=== PATIENT | male | born 1985 | race Hispanic/Latino ===

== ENCOUNTER 2017-04-09 17:00 | Emergency (ER) | payer MEDICAID ==
[2017-04-09 17:35] VITALS: BMI 29.0
[2017-04-09 17:36] VITALS: BP 140/77; PULSE 100; RESP 16; TEMP 97.6; O2SAT 99
--- NOTE | 2017-04-09 18:16 | ED PDOC ---
HPI: Wound Care - HPI Time Seen by Provider: 04/09/17 18:10 Chief Complaint (Nursing): Abnormal Skin Integrity Chief Complaint (Provider): Abscess on neck History Per: Patient Exam Limitations: no limitations Onset/Duration Of Symptoms: Waxing/Waning Current Symptoms Are (Timing): Still Present Additional Complaint(s): Allan is a 31 y/o male who presents complaining of sebaceous cyst on the nape of his neck, ongoing for years but worsened today. States he has had the cyst drained previously. He has an appointment Wednesday with [employer] supervisor, but states it became very painful today so he came here to have it drained. PMD: Darrel Jimenez MD Past Medical History Reviewed: Historical Data, Nursing Documentation, Vital Signs Vital Signs: Last Vital Signs Temp 97.6 F 04/09/17 17:35 Pulse 100 H 04/09/17 17:35 Resp 16 04/09/17 17:35 BP 140/77 04/09/17 17:35 Pulse Ox 99 04/09/17 17:35 - Medical History PMH: No Chronic Diseases - Surgical History Surgical History: No Surg Hx - Family History Family History: States: Unknown Family Hx - Social History Current smoker - smoking cessation education provided: Yes Alcohol: Social Drugs: Denies - Home Medications Home Medications: Ambulatory Orders Medication Instructions Recorded Ibuprofen [Motrin Tab] 800 mg PO BID #20 tab 04/09/17 Sulfamethoxazole/Trimethoprim 1 tab PO BID #14 tab 04/09/17 [Bactrim DS 800 mg-160 mg] oxyCODONE/Acetaminophen [Percocet 1 tab PO Q6 PRN #15 tab 04/09/17 5/325 mg Tab] - Allergies Allergies/Adverse Reactions: Allergies Allergy/AdvReac Type Severity Reaction Status Date / Time No Known Allergies Allergy Verified 04/09/17 17:43 Review of Systems ROS Statement: Except As Marked, All Systems Reviewed And Found Negative Musculoskeletal: Positive for: Neck Pain (with cyst) Physical Exam - Reviewed Nursing Documentation Reviewed: Yes Vital Signs Reviewed: Yes - Physical Exam Appears: Positive for: Non-toxic, No Acute Distress Head Exam: Positive for: ATRAUMATIC, NORMAL INSPECTION, NORMOCEPHALIC Skin: Positive for: Warm. Negative for: Normal Color (large abscess, approximately 3 1/2 by 2 cm, at the nape of the neck with streaking. Very fluctuant, warm and tender. ) Eye Exam: Positive for: EOMI, Normal appearance, PERRL Neurologic/Psych: Positive for: Alert, Oriented - ECG O2 Sat by Pulse Oximetry: 99 (RA) Pulse Ox Interpretation: Normal Medical Decision Making Medical Decision Making: Clinical Impression: Epidermal inclusion cyst Time: 18:15 Initial Plan: --requires I&D, with normal saline irrigation with 250NS cc. >10cc of pus drainage. Pt given perocet, motrin bactim. warm compress Patient will be discharged home with Bactrim and instructed to follow up with [employer] supervisor. Scribe Attestation: Documented by Maribel Jade, acting as a scribe for Selena Jara PA-C Provider Scribe Attestation: All medical record entries made by the Scribe were at my direction and personally dictated by me. I have reviewed the chart and agree that the record accurately reflects my personal performance of the history, physical exam, medical decision making, and the department course for this patient. I have also personally directed, reviewed, and agree with the discharge instructions and disposition. Disposition - Clinical Impression Clinical Impression: Sebaceous cyst - Patient ED Disposition Is Patient to be Admitted: No Counseled Patient/Family Regarding: Diagnosis, Need For Followup - Disposition Disposition: Routine/Home Disposition Time: 18:30 Condition: STABLE Additional Instructions: please appy warm compress to area, take your antibiotics and follow up with a [employer] supervisor. Prescriptions: Ibuprofen [Motrin Tab] 800 mg PO BID #20 tab oxyCODONE/Acetaminophen [Percocet 5/325 mg Tab] 1 tab PO Q6 PRN #15 tab PRN Reason: Pain, Severe (8-10) Sulfamethoxazole/Trimethoprim [Bactrim DS 800 mg-160 mg] 1 tab PO BID #14 tab Instructions: Epidermal Inclusion Cysts (ED) Forms: [employer] (Bulgarian) - Incision & Drainage Of Abscess Anesthesia: Lidocaine 1% (5 cc) Procedure: Incised W/Scalpel Blade#: (11), Drained Pus (10 ccs), Irrigated Cavity W/Saline (250 cc ), Packed W/Gauze
== END 2017-04-09 18:33 | disposition home or self-care (01) ==
LOC: H.ER 17:00
DX: L02.11 Cutaneous abscess of neck (principal)